=== PATIENT | male | born 1975 | race Caucasian/White ===

== ENCOUNTER 2016-11-02 18:49 | Emergency (ER) | payer MEDICAID ==
[~2016-11-02] VITALS: Ht 170.2 cm; Wt 72.5 kg
[~2016-11-02 18:49] MED LIST: AZIT250T94 PO; HYDR-3720 PO; PRED20TA PO
[2016-11-02 18:58] VITALS: Ht 170.2 cm; Wt 72.5 kg
[2016-11-02] MEDS ORDERED: TETRACAINE 0.5% 4 ML OPH LEFT EYE ONE (21:00)
[2016-11-02] MEDS ORDERED: FLUORESCEIN STRIP LEFT EYE ONE (21:00)
[2016-11-02] MEDS ORDERED: IBUP-1542 PO (21:34)
--- NOTE | 2016-11-02 22:13 | ERD ---
ER Documentation Chief Complaint Date/Time DATE: 11/02/16 TIME: 22:10 Chief Complaint left eye redness HPI Patient is a 41-year-old male and is a 41-year-old male resents to the ED with left eye pain and redness since yesterday. 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 He denies trauma or injury. He denies blurry vision but states that it is mildly painful when he moves his eye. Denies headache or dizziness. No other complaints. ROS All systems reviewed and are negative except as per history of present illness. Medications Home Meds Active Scripts Ibuprofen* (Motrin*) 600 Mg Tab, 600 MG PO Q6, #30 TAB Prov:MARGARET ZAZUETA PA-C 11/02/16 Prednisone* (Prednisone*) 20 Mg Tab, 60 MG PO DAILY for 5 Days, TAB Prov:LEKKOSAPOSTOLOS A. DO 03/09/15 Hydrocodone Bit-Acetaminophen* ([place]*) 7.5-325 Tablet, 1 TAB PO Q4H Y for PAIN , #20 TAB Prov:LEBELLEOSYOLANDASTOLOS A. DO 03/09/15 Azithromycin* (Zithromax*) 250 Mg Tablet, 250 MG PO .ZPACK DIRECTED, #6 TAB TAKE 500 MG (2 TABS) THE FIRST DAY THEN 250 MG (1 TAB) DAYS 2-5 Prov:LEKKOS,APOSTOLOS A. DO 03/09/15 Allergies Allergies: Coded Allergies: No Known Allergy (Unverified , 03/09/15) PMhx/Soc History of Surgery: No Anesthesia Reaction: No Hx Neurological Disorder: No Hx Respiratory Disorders: No Hx Cardiac Disorders: No Hx Psychiatric Problems: No Hx Miscellaneous Medical Probl: No Hx Alcohol Use: No Hx Substance Use: No Hx Tobacco Use: No Smoking Status: Never smoker FmHx Family History: No coronary disease, No diabetes, No other Physical Exam Vitals Vital Signs Date Time Temp Pulse Resp B/P Pulse Ox O2 Delivery O2 Flow Rate FiO2 11/02/16 18:58 98.9 73 20 131/78 98 Physical Exam GENERAL: Well-developed, well-nourished male. Appears in no acute distress. HEAD: Normocephalic, atraumatic. EYES: Pupils are equally reactive bilaterally. EOMs grossly intact. left eye has lateral conjunctival hemorrhage. no gross foreign bodies visible. ENT: Moist mucous membranes. No uvula deviation. No kissing tonsils. No exudates. NECK: Supple. No lymphadenopathy or thyromegaly. No meningismus. negative kernig. negative brudinski. LUNG: Clear to auscultation bilaterally. No rhonchi, wheezing, rales or coarse breath sounds. HEART: Regular rate and rhythm. No murmurs, rubs or gallops. BACK: No midline tenderness. Extremities: Equal pulses bilaterally. No peripheral clubbing, cyanosis or edema. No unilateral leg swelling. NEUROLOGIC: Alert and oriented. Moving all four extremities. 5/5 strength in all extremities. Normal speech. Steady gait. SKIN: Normal color. Warm and dry. No rashes or lesions. Capillary refill < 2 secondsPatient is a 41-year-old male and is a 41-year-old male resents to the ED with left eye pain and redness since yesterday. 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 He denies trauma or injury. He denies blurry vision but states that it is mildly painful when he moves his eye. Denies headache or dizziness. No other complaints. Results 24 hrs Current Medications Medications (Trade) Dose Ordered Sig/Yessy Route PRN Reason Start Time Stop Time Status Last Admin Dose Admin Tetracaine HCl (Tetracaine 0.5% Steri-Unit Blanka) 1 drop ONCE ONCE LEFT EYE 11/02/16 21:00 11/02/16 21:01 DC Fluorescein Sodium (Cjlzz-K-Vdduf) 1 strip ONCE ONCE LEFT EYE 11/02/16 21:00 11/02/16 21:01 DC Procedures/MDM ER COURSE: I kept the patient and/or family informed of laboratory and diagnostic imaging results throughout the emergency room course. MEDICAL DECISION MAKING: This is a 41 year old male who presents with left eye redness x 2 days. Vital signs were reviewed. Patient is afebrile. Patient is not hypoxic. Patient is not toxic or ill appearing. Visual Acuity was 20/20 in both eyes and individually. Tonopen pressure was 23, done two times in the left eye. tetracaine and fluorescein stain done with no uptake. No dendritic lesions, ulcers, foreign bodies or abrasions seen. Patient has sub-conjunctival hemorrhage. Low suspicion for acute angle closure glaucoma, retinal detachment , arterial occlusion, hemorrhage, fracture, foreign body, ruptured globe, orbital cellulitis is also with my supervising physician Dr. Ruvalcaba who agrees with my medical decision making and discharge plans DISCHARGE: At this time, patient is stable for discharge and outpatient management with no new complaints during the ER course. Patient was sent home with instructions to follow up with [facility], [facility] information given. Patient will be discharged home with instructions to recheck for new or worsening symptoms such as fever, nausea, weakness, LOC and to follow up with primary care in the next 1-2 days. Patient was advised to return to the ER for any new or worsening symptoms. Plan was discussed and patient and/or family understands and agrees. Home instructions were given. Departure Diagnosis: Primary Impression: Conjunctival hemorrhage of left eye Condition: Stable Patient Instructions: Subconjunctival Hemorrhage Referrals: [facility] Hours: Mon - Fri 9:00 AM - 5:00 PM Additional Instructions: Llame al doctor VALENTINO y margarito byron CHRISTINA PARA DENTRO DE 1-2 GILLESPIE.Dgale a la secretaria que nosotros le instruimos hacer esta christina.Avise o llame si gardner condicin se empeora antes de la christina. Regresa aqui si peor o no mejor. MARGARET ZAZUETA PA-C Nov 02, 2016 22:13
== END 2016-11-02 21:44 | disposition home or self-care (01) ==
LOC: FTE 18:49
DX: H11.32 Conjunctival hemorrhage, left eye (principal)
CPT/HCPCS: Z7502; Z7610; 99283

== ENCOUNTER 2017-04-24 23:37 | Emergency (ER) | END 2017-04-25 03:26 | disposition home or self-care (01) ==

== ENCOUNTER 2017-05-22 18:53 | Emergency (ER) | END 2017-05-22 22:19 | disposition home or self-care (01) ==

== ENCOUNTER 2017-08-31 19:29 | Emergency (ER) | END 2017-08-31 21:36 | disposition home or self-care (01) ==

== ENCOUNTER 2018-06-18 17:09 | Emergency (ER) | payer OTHER ==
[~2018-06-18] VITALS: Wt 90.0 kg
[~2018-06-18 17:09] MED LIST changes: +AMOX500C2 PO; +AZIT250T PO; -AZIT250T94 PO; +CIPR500T4 PO; +D-ME473S2 PO; +IBUP-1542 PO; +METR500T PO; +ONDA4TAB14 PO; +OSEL75CA23 PO
[2018-06-18 17:15] VITALS: BP 145/71; PULSE 71; RESP 18
[2018-06-18] MEDS ORDERED: IBUP-1542 PO (20:16)
--- NOTE | 2018-06-18 21:05 | ERD ---
ER Documentation Chief Complaint Chief Complaint right sided middle breaST POSSIBLE GROWTH X 2 WEEKS HPI This is a 42-year-old male who presents to the ED complaining of a bump to his right chest area for the past 2 weeks. He states he has pain in this area, only when stretching or picking things up. He states he does go to the gym regularly. He states he feels a bump in the middle of his chest and is worried about this. He denies any trauma. Denies any fevers or chills. Denies any associated shortness of breath or wheezing. Denies any chest pain. Denies any other complaints. ROS All systems reviewed and are negative except as per history of present illness. Medications Home Meds Active Scripts Ibuprofen* (Motrin*) 600 Mg Tab, 600 MG PO Q6H PRN for PAIN AND OR ELEVATED TEMP, #30 TAB Prov:RAMONA VERA PA-C 06/18/18 Ibuprofen* (Motrin*) 600 Mg Tab, 600 MG PO Q6, #30 TAB Prov:JO-ANN LOPEZ 08/31/17 Metronidazole* (Flagyl*) 500 Mg Tablet, 500 MG PO TID for 7 Days, TAB Prov:JO-ANN LOPEZ 08/31/17 Ciprofloxacin Hcl* (Ciprofloxacin Hcl*) 500 Mg Tablet, 500 MG PO BID for 7 Days, TAB Prov:JO-ANN LOPEZ 08/31/17 Oseltamivir Phosphate* (Tamiflu*) 75 Mg Capsule, 75 MG PO BID for 5 Days, #10 CAP Prov:GABRIELA ROSAS PA-C 05/22/17 Dextromethorphan Hb-Promethazine Hcl* (Promethazine DM* Syrup) 473 Ml Syrup, 5 ML PO Q6 PRN for COUGH, #120 ML Prov:GABRIELA ROSAS PA-C 05/22/17 Ibuprofen* (Motrin*) 600 Mg Tab, 600 MG PO Q6, #30 TAB Prov:GABRIELA ROSAS PA-C 05/22/17 Ondansetron (Ondansetron Odt) 4 Mg Tab.rapdis, 4 MG PO Q6H PRN for NAUSEA AND/OR VOMITING, #10 TAB Prov:GABRIELA ROSAS PA-C 05/22/17 Ibuprofen* (Motrin*) 600 Mg Tab, 600 MG PO Q6H PRN for PAIN AND OR ELEVATED TEMP, #30 TAB Prov:ARNULFO MILIAN BONE WORKER 04/25/17 Amoxicillin* (Amoxicillin*) 500 Mg Cap, 500 MG PO TID for 10 Days, CAP Prov:SHIRLEYARNULFO COURTNEY BONE WORKER 04/25/17 Ibuprofen* (Motrin*) 600 Mg Tab, 600 MG PO Q6, #30 TAB Prov:MARGARET ZAZUETA PA-C 11/02/16 Prednisone* (Prednisone*) 20 Mg Tab, 60 MG PO DAILY for 5 Days, TAB Prov:LEKKOS,APOSTOLOS A. DO 03/09/15 Hydrocodone Bit-Acetaminophen* ([place]*) 7.5-325 Tablet, 1 TAB PO Q4H PRN for PAIN, #20 TAB Prov:LEKKOS,APOSTOLOS A. DO 03/09/15 Azithromycin* (Zithromax*) 250 Mg Tablet, 250 MG PO .ZPACK DIRECTED, #6 TAB TAKE 500 MG (2 TABS) THE FIRST DAY THEN 250 MG (1 TAB) DAYS 2-5 Prov:LEKKOS,APOSTOLOS A. DO 03/09/15 Allergies Allergies: Coded Allergies: No Known Allergy (Unverified , 08/31/17) PMhx/Soc Medical and Surgical Hx: pt denies Medical Hx, pt denies Surgical Hx History of Surgery: No Anesthesia Reaction: No Hx Neurological Disorder: No Hx Respiratory Disorders: No Hx Cardiac Disorders: No Hx Psychiatric Problems: No Hx Miscellaneous Medical Probl: No Hx Alcohol Use: No Hx Substance Use: No Hx Tobacco Use: No Smoking Status: Never smoker Physical Exam Vitals Vital Signs Date Temp Pulse Resp B/P (MAP) Pulse Ox O2 O2 Flow FiO2 Time Delivery Rate 06/18/18 98.1 71 18 145/71 99 17:15 (95) Physical Exam Const: No acute distress Head: Atraumatic Eyes: Normal Conjunctiva ENT: Normal External Ears, Nose and Mouth. Neck: Full range of motion. No meningismus. Resp: Clear to auscultation bilaterally. Cardio: Regular rate and rhythm, no murmur Skin: + possible small palpable mass to right medial chest, near pectorial region, mild pain with palpation. Back: No midline or flank tenderness Neur: Awake and alert Psych: Normal Mood and Affect Procedures/MDM LABS & DIAGNOSTIC IMAGING: PROCEDURE: Ultrasound of the medial right breast CLINICAL INDICATION: Pain, palpable mass TECHNIQUE: Real time imaging of the medial aspect of the right breast was performed in the area of pain and palpable mass. COMPARISON: None FINDINGS: Real time imaging of the medial aspect of the right breast was performed in the area of pain and palpable mass. No cystic or solid masses are identified. No fluid collections are identified. IMPRESSION: No sonographic abnormalities are identified in the medial aspect of the right breast in the area of pain and palpable mass. RPTAT:AAJJ Physician Caterina Date Time Electronically viewed and signed by Alfonzo Kang Physician on 06/18/2018 19:57 PROCEDURE: XR Chest. CLINICAL INDICATION: right chest pain TECHNIQUE: Single frontal view of the chest was obtained COMPARISON: None FINDINGS: The heart and mediastinum are within normal limits. The lungs are clear. There is no pleural effusion or pneumothorax. The bones and soft tissue show no acute change. IMPRESSION: No definite abnormalities are identified. MEDICAL DECISION MAKING: This is a 42-year-old male who presents to the ED complaining of a possible bump to his mid chest. Soft tissue ultrasound was unremarkable, no evidence of mass. Chest x-ray was also unremarkable. I suspect patient's symptoms may be related to a chest wall muscle strain as he works out in the gym often and has a symptoms, mostly with movement or when working out. I recommended a trial of ice/heating pads as well as ibuprofen for pain. Recommend follow-up with primary care in 2 days, otherwise return here for any new or worsening symptoms. PRESCRIPTIONS: Ibuprofen SPECIALIST FOLLOW UP RECOMMENDED: None Patient has been advised to follow up with primary care in 1-2 days. Blood Pressure Assessment: Patient's blood pressure was elevated (>120/80) but appears stable without evidence of hypertension emergency or urgency. The patient was counseled about the risks of hypertension and urged to pursue outpatient monitoring and therapy within a week with their primary care manju holland. Departure Diagnosis: Primary Impression: Muscle strain of chest wall Encounter type: initial encounter Qualified Codes: S29.011A - Strain of m uscle and tendon of front wall of thorax, initial encounter Condition: Stable Patient Instructions: Chest Wall Strain Referrals: [facility] YOU HAVE RECEIVED A MEDICAL SCREENING EXAM AND THE RESULTS INDICATE THAT YOU DO NOT HAVE A CONDITION THAT REQUIRES URGENT TREATMENT IN THE EMERGENCY DEPARTMENT. FURTHER EVALUATION AND TREATMENT OF YOUR CONDITION CAN WAIT UNTIL YOU ARE SEEN IN YOUR DOCTORS OFFICE WITHIN THE NEXT 1-2 DAYS. IT IS YOUR RESPONSIBILITY TO MAKE AN APPOINTMENT FOR FOLOW-UP CARE. IF YOU HAVE A PRIMARY DOCTOR --you should call your primary doctor and schedule an appointment IF YOU DO NOT HAVE A PRIMARY DOCTOR YOU CAN CALL OUR PHYSICIAN REFERRAL HOTLINE AT IF YOU CAN NOT AFFORD TO SEE A PHYSICIAN YOU CAN CHOSE FROM THE FOLLOWING [facility] [address] [facility] [address] [facility] [address] [facility] [address] [facility] [address] [facility]. [facility] [address] [facility]. [facility] YOU HAVE RECEIVED A MEDICAL SCREENING EXAM AND THE RESULTS INDICATE THAT YOU DO NOT HAVE A CONDITION THAT REQUIRES URGENT TREATMENT IN THE EMERGENCY DEPARTMENT. FURTHER EVALUATION AND TREATMENT OF YOUR CONDITION CAN WAIT UNTIL YOU ARE SEEN IN YOUR DOCTORS OFFICE WITHIN THE NEXT 1-2 DAYS. IT IS YOUR RESPONSIBILITY TO MAKE AN APPOINTMENT FOR FOLOW-UP CARE. IF YOU HAVE A PRIMARY DOCTOR --you should call your primary doctor and schedule and appointment IF YOU DO NOT HAVE A PRIMARY DOCTOR YOU CAN CALL OUR PHYSICIAN REFERRAL HOTLINE AT . IF YOU CAN NOT AFFORD TO SEE A PHYSICIAN YOU CAN CHOSE FROM THE FOLLOWING [facility] INSTITUTIONS: [facility] [address] [place] [address] [facility] [address] [place] [address] [facility] + [facility] [address] [place] [address] [facility] URGENT CARE/SPECIALTIES Additional Instructions: Your imaging here have all been normal, it is likely you could have strained the muscles in your chest. I recommend icing, warm compresses, he can also take any ibuprofen for pain. Paciente aconseja volver a Departamento de urgencias inmediatamente para sntomas nuevos o que empeoran . Paciente aconseja posteriores con el PCP en 1-2 whitman. Si el paciente no tiene ninguna de atencin primaria pueden seguir con [facility] [address] [place] [address] o [facility] + [address] [address] RAMONA VERA PA-C June 18, 2018 20:54
== END 2018-06-18 20:24 | disposition home or self-care (01) ==
LOC: FTE 17:09
DX: S29.011A Strain of muscle and tendon of front wall of thorax, initial encounter (principal); X58.XXXA Exposure to other specified factors, initial encounter; Y92.9 Unspecified place or not applicable
CPT/HCPCS: 71045; 76536; Z7502